=== PATIENT | male | born 1960 | race Native Hawaiian/Other Pacific Islander ===

== ENCOUNTER 2017-09-28 16:52 | Emergency (ER) | payer BC ==
[~2017-09-28] VITALS: Ht 175.3 cm; Wt 79.4 kg
[2017-09-28 16:57] VITALS: TEMP 97.9
[2017-09-28 17:31] LABS: PLATELET COUNT 173 K/uL (142-355)
[2017-09-28 17:40] LABS: POTASSIUM 4.5 mmol/L (3.6-5.2)
[2017-09-28 18:28] VITALS: BP 128/70
== END 2017-09-28 18:28 | disposition home or self-care (01) ==
LOC: ED 16:52
DX: N20.1 Calculus of ureter (principal)
CPT/HCPCS: 36415; 80053; 81000; 85027; 96361; 96374; 96375; 99284; J1885; J2405; J7120

== ENCOUNTER 2019-01-15 19:50 | Emergency (ER) | payer BC ==
[~2019-01-15] VITALS: Ht 175.3 cm; Wt 78.0 kg
[2019-01-15] MEDS ORDERED: VITAMIN D1000 UNIT PO (19:56)
[2019-01-15] MEDS ORDERED: PANTOPRAZOLE 40MG TA PO (19:56)
[2019-01-15] MEDS ORDERED: LISI5TAB10 PO (19:56)
[2019-01-15] MEDS ORDERED: ELIQUIS5 MG PO (19:57)
[2019-01-15] MEDS ORDERED: TRAMADOL HYDROC50 MG PO (19:57)
[2019-01-15 20:28] LABS: PLATELET COUNT 155 K/uL (142-355)
[2019-01-15 20:47] LABS: POTASSIUM 3.5 mmol/L (3.6-5.2)
[2019-01-15 21:13] LABS: PARTIAL THROMBOPLASTIN TIME 24.6 SECONDS (24.5-33.6)
[2019-01-15 23:26] VITALS: TEMP 98.1
[2019-01-15 23:33] VITALS: BP 114/96
== END 2019-01-15 23:26 | disposition short-term general hospital (02) ==
LOC: ED 19:50
PROVIDERS: Hospitalist
DX: I26.99 Other pulmonary embolism without acute cor pulmonale (principal); Z98.890 Other specified postprocedural states
CPT/HCPCS: 80053; 82550; 83880; 84484; 85027; 85379; 85610; 85730; 93005; 96360; 96372; 99285; J1650; Q9963

== ENCOUNTER 2019-01-29 00:48 | Emergency (ER) | payer BC ==
[~2019-01-29] VITALS: Ht 175.3 cm; Wt 78.0 kg
[~2019-01-29 00:48] MED LIST: ELIQUIS5 MG PO; LISI5TAB10 PO; PANTOPRAZOLE 40MG TA PO; TRAMADOL HYDROC50 MG PO; VITAMIN D1000 UNIT PO
[2019-01-29] MEDS ORDERED: XARELTO10 MG PO (01:04)
[2019-01-29 01:09] LABS: PLATELET COUNT 201 K/uL (142-355)
[2019-01-29 01:40] LABS: POTASSIUM 3.9 mmol/L (3.6-5.2); SODIUM 138 mmol/L (136-145)
[2019-01-29 02:42] VITALS: BP 152/83; TEMP 98.3
== END 2019-01-29 02:45 | disposition home or self-care (01) ==
LOC: ED 00:48
PROVIDERS: Emergency Medicine
DX: T78.40XA Allergy, unspecified, initial encounter (principal)
CPT/HCPCS: 36415; 80053; 82550; 82553; 84484; 85027; 93005; 96374; 96375; 99284; J1200; J2930

== ENCOUNTER 2020-03-02 11:10 | Emergency (ER) | payer BC ==
[~2020-03-02] VITALS: Ht 175.3 cm; Wt 74.8 kg
[~2020-03-02 11:10] MED LIST changes: +XARELTO10 MG PO
[2020-03-02 12:53] LABS: PLATELET COUNT 225 K/uL (142-355)
[2020-03-02 13:04] LABS: POTASSIUM 4.5 mmol/L (3.6-5.2); SODIUM 137 mmol/L (136-145)
[2020-03-02 15:01] VITALS: BP 140/80; TEMP 99
== END 2020-03-02 15:13 | disposition home or self-care (01) ==
LOC: ED 11:10
PROVIDERS: Family Medicine
DX: R06.09 Other forms of dyspnea (principal); I51.9 Heart disease, unspecified
CPT/HCPCS: 36415; 80053; 82550; 82805; 83605; 84484; 85027; 85379; 93005; 96372; 99283; Q9963

== ENCOUNTER 2020-03-12 13:46 | Outpatient (CLI) | payer BC | END 2020-03-12 22:35 | disposition home or self-care (01) | LOC: RESP 13:46 | DX: R06.02 Shortness of breath (principal) ==

== ENCOUNTER 2021-07-29 04:51 | Observation (INO) | payer OTHER ==
[2021-07-29] VITALS (8 sets, daily range): BP systolic 108–132; BP diastolic 52–68; TEMP 97–100.6; Ht 175.3 cm; Wt 89.1 kg
[~2021-07-29] VITALS: Ht 175.3 cm; Wt 89.1 kg
[~2021-07-29 04:51] MED LIST changes: -XARELTO10 MG PO; +XARELTO15 MG PO
[2021-07-29 05:31] LABS: PLATELET COUNT 206 K/uL (142-355)
[2021-07-29 05:34] LABS: POTASSIUM 3.8 mmol/L (3.6-5.2)
[2021-07-29] MEDS ORDERED: LIPITOR20 MG PO (15:22)
[2021-07-29] MEDS ORDERED: HYDROCODONE BIT1 TAB PO (15:23)
[2021-07-29] MEDS ORDERED: ALL DAY ALLG10 MG PO (15:24)
[2021-07-29] MEDS ORDERED: MAGNESIUM OXID400 M3 PO (15:25)
[2021-07-30 04:01] VITALS: BP 108/53; TEMP 98
[2021-07-30 08:04] VITALS: BP 117/56; TEMP 98.1
[2021-07-30 08:24] LABS: PLATELET COUNT 172 K/uL (142-355)
[2021-07-30 08:30] LABS: POTASSIUM 3.1 mmol/L (3.6-5.2)
== END 2021-07-30 12:45 | disposition home or self-care (01) ==
LOC: ED 04:51 → MED/SURG 10:45
PROVIDERS: Emergency Medicine Emergency Medical Services; ADMIT Internal Medicine Endocrinology, Diabetes & Metabolism; ATTEND Internal Medicine Endocrinology, Diabetes & Metabolism
DX: J01.80 Other acute sinusitis (principal); I10 Essential (primary) hypertension; K21.9 Gastro-esophageal reflux disease without esophagitis; I48.92 Unspecified atrial flutter; I27.82 Chronic pulmonary embolism; G89.4 Chronic pain syndrome
CPT/HCPCS: 80048; 81000; 83605; 84484; 85027; 87040; 87635; 90686; 93005; 94640; 94664; 94760; 96360; 96361; 96365; 96367; 96374; 96375; 99220; 99284; G0378; J0456; J0696; J1885; J2543; J2920; J2930; J3370; U0003

== ENCOUNTER 2022-10-31 17:55 | Emergency (ER) | payer OTHER ==
[~2022-10-31] VITALS: Ht 175.3 cm; Wt 93.9 kg
[~2022-10-31 17:55] MED LIST changes: +ALL DAY ALLG10 MG PO; +HYDROCODONE BIT1 TAB PO; +LIPITOR20 MG PO; +MAGNESIUM OXID400 M3 PO
[2022-10-31 17:58] VITALS: TEMP 98.6
[2022-10-31 19:02] LABS: PLATELET COUNT 199 K/uL (142-355)
[2022-10-31 19:10] LABS: POTASSIUM 4.7 mmol/L (3.6-5.2)
[2022-10-31 22:10] VITALS: BP 120/82
== END 2022-10-31 22:10 | disposition home or self-care (01) ==
LOC: ED 17:55
PROVIDERS: Family Medicine
DX: R07.89 Other chest pain (principal)
CPT/HCPCS: 80053; 84484; 85027; 85610; 93005; 99284